=== PATIENT | female | born 1960 | race Caucasian/White ===

== ENCOUNTER → 2021-10-13 | Day surgery (SDC) | payer BC | END | disposition home or self-care (01) | LOC: JRADIR 10:50 | PROVIDERS: ATTEND Internal Medicine Infectious Disease | PROC: 02HV33Z Insertion of Infusion Device into Superior Vena Cava, Percutaneous Approach (ICD-10-PCS; principal; 2021-10-13) | PROC: B518ZZA Fluoroscopy of Superior Vena Cava, Guidance (ICD-10-PCS; 2021-10-13) | DX: N30.00 Acute cystitis without hematuria (principal) | CPT/HCPCS: 36569; 77001-TC-FY; C1751 ==

== ENCOUNTER 2021-10-21 15:14 | Inpatient (IN) | payer BC, OTHER ==
[2021-10-21 17:42] LABS: BASO % 0.8 % (0-2.0); EOS % 1.2 % (0-4.5); HEMATOCRIT 40.8 % (32.4-45.2); HEMOGLOBIN 13.5 GM/dL (10.7-15.3); LYMPH % 11.9 % (8-40); MCH 28.7 pg (25.7-33.7); MCHC 33.2 g/dl (32.0-36.0); MEAN CELL VOLUME 86.6 fl (80-96); MEAN PLT VOLUME 9.4 fl (7.5-11.1); MONO % 8.6 % (3.8-10.2); NEUT % 77.5 % (42.8-82.8); PLATELET COUNT 166 10^3/uL (134-434); RBC 4.71 M/mm3 (3.60-5.2); RDW 13.9 % (11.6-15.6); WHITE BLOOD COUNT 12.9 K/mm3 (4.0-10.0)
[2021-10-21 17:49] LABS: INR 1.01 (0.83-1.09); PROTHROMBIN TIME (PATIENT) 11.8 SEC (9.7-13.0)
[2021-10-21 17:51] LABS: ACTIVATED PTT 32.7 SECONDS (25.2-36.5)
[2021-10-21 18:07] LABS: CHLORIDE 108 mmol/L (98-107); SODIUM 138 mmol/L (136-145)
[2021-10-21 18:09] LABS: ALBUMIN 3.8 g/dl (3.4-5.0); ANION GAP 6 MMOL/L (8-16); BLOOD UREA NITROGEN 11.7 mg/dL (7-18); CALCIUM 9.4 mg/dL (8.5-10.1); CO2 24 mmol/L (21-32); GLUCOSE,RANDOM 86 mg/dL (74-106)
[2021-10-21 18:12] LABS: CREATININE 0.6 mg/dL (0.55-1.3); SGOT/AST 15 U/L (15-37); SGPT/ALT 18 U/L (13-61)
[2021-10-21 18:14] LABS: BILIRUBIN,TOTAL 0.8 mg/dL (0.2-1); TOT PROT 7.2 g/dl (6.4-8.2)
[2021-10-21 18:15] LABS: ALK PHOS 67 U/L (45-117)
[2021-10-21] MEDS ORDERED: CEFTRIAXONE 2,000 MG in DEXTROSE 5%-WATER - 50 ML IVPB ONE (19:08)
[2021-10-21] MEDS ORDERED: VANCOMYCIN 1,000 MG in DEXTROSE 5%-WATER - 250 ML IVPB ONE (19:08)
[2021-10-21] MEDS ORDERED: SODIUM CHLORIDE 0.9% 500 ML INFUS.BAG IV ONE (19:08)
[2021-10-21] MEDS ORDERED: CEFTRIAXONE 2 GM/100 ML BAG IVPB ONE (19:27)
[2021-10-21] MEDS ORDERED: VANCOMYCIN 1 GRAM (PRE-DOCKED) 1,000 MG/250 ML BAG IVPB ONE (20:41)
[2021-10-21] MEDS ORDERED: ACETAMINOPHEN 325 MG TABLET (FP) PO ONE (20:50)
[2021-10-21] MEDS ORDERED: ACETAMINOPHEN 325 MG TABLET (FP) ONE (20:50)
[2021-10-21] MEDS ORDERED: LIDOCAINE 5% TOPICAL PATCH TP ONE (20:50)
[2021-10-21] MEDS ORDERED: LIDOCAINE 5% TOPICAL PATCH ONE (20:51)
[2021-10-21] MEDS ORDERED: ERTAPENEM SODIUM 1 GM in SODIUM CHLORIDE 50 ML IVPB ONE (21:20)
[2021-10-21] MEDS ORDERED: SODIUM CHLORIDE 1,000 ML IV ONE (22:02)
[2021-10-21] MEDS ORDERED: ACETAMINOPHEN 1000 MG/100 ML VIAL IVPB ONE (22:09)
[2021-10-21] MEDS ORDERED: ERTAPENEM SODIUM 1 GM VIAL ONE (22:24)
[2021-10-21] MEDS: SODIUM CHLORIDE 1,000 ML IV SCH (23:05)
[2021-10-21] MEDS: LIDOCAINE PATCH REMOVAL MC SCH (23:05)
[2021-10-22 00:27] VITALS: BMI 29.7
[2021-10-22 00:51] LABS: LACTIC ACID 2.3 mmol/L (0.4-2.0)
[2021-10-22] MEDS ORDERED: DEXTROSE 5%-WATER - 50 ML IVPB ONE ×2 (00:53→09:26)
[2021-10-22] MEDS ORDERED: PIPERACILLIN/TAZOBACTAM 3.375 GM VIAL IVPB ONE ×2 (00:53→09:26)
[2021-10-22] MEDS: PIPERACILLIN/TAZOB 3.375 GM 3.375 GM in DEXTROSE 5%-WATER - 50 ML IVPB SCH ×2 (01:21→09:46)
[2021-10-22] MEDS ORDERED: PIPERACILLIN/TAZOB 3.375 GM 3.375 GM in DEXTROSE 5%-WATER - 50 ML IVPB SCH (02:00)
[2021-10-22] MEDS: ACETAMINOPHEN 325 MG TABLET (FP) PO PRN ×2 (05:10→11:36)
[2021-10-22] MEDS: NICOTINE 14 MG/24 HOURS TOPICAL PATCH TD SCH (09:46)
[2021-10-22] MEDS: ENOXAPARIN NA (PORCINE) 40 MG/0.4 ML DISP.SYRIN SQ SCH (09:46)
[2021-10-22] MEDS: MULTIVITAMINS (DAILY MVI) TABLET (FP) PO SCH (09:46)
[2021-10-22] MEDS ORDERED: VANCOMYCIN 1 GM in D5W (PRE-DOCKED) 1,000 MG/250 ML IVPB SCH (10:00)
[2021-10-22 10:13] LABS: BASO % 0.7 % (0-2.0); EOS % 1.3 % (0-4.5); HEMATOCRIT 37.1 % (32.4-45.2); HEMOGLOBIN 12.7 GM/dL (10.7-15.3); LYMPH % 12.4 % (8-40); MCH 29.7 pg (25.7-33.7); MCHC 34.2 g/dl (32.0-36.0); MEAN CELL VOLUME 86.8 fl (80-96); MONO % 10.1 % (3.8-10.2); NEUT % 75.5 % (42.8-82.8); PLATELET COUNT 217 10^3/uL (134-434); RBC 4.28 M/mm3 (3.60-5.2); RDW 14.2 % (11.6-15.6); WHITE BLOOD COUNT 12.8 K/mm3 (4.0-10.0)
[2021-10-22 10:17] LABS: INR 1.17 (0.83-1.09); PROTHROMBIN TIME (PATIENT) 13.1 SEC (9.7-13.0)
[2021-10-22 10:20] LABS: ACTIVATED PTT 31.1 SECONDS (25.2-36.5)
[2021-10-22 10:52] LABS: BLOOD UREA NITROGEN 8.1 mg/dL (7-18); MAGNESIUM 2.2 mg/dL (1.8-2.4)
[2021-10-22 10:55] LABS: PHOSPHOROUS 2.7 mg/dL (2.5-4.9)
[2021-10-22 10:56] LABS: CREATININE 0.7 mg/dL (0.55-1.3); TOT PROT 6.4 g/dl (6.4-8.2)
[2021-10-22] MEDS: VANCOMYCIN 1 GM in D5W (PRE-DOCKED) 1,000 MG/250 ML IVPB ONE ×2 (11:36→11:40)
[2021-10-22] MEDS ORDERED: MEROPENEM 1 GM VIAL (RESTRICTED TO ID) IVPB ONE (17:38)
[2021-10-22] MEDS ORDERED: DEXTROSE 5%-WATER 100 ML IVPB ONE (17:39)
[2021-10-22] MEDS: MEROPENEM 1 GM in DEXTROSE 5%-WATER 100 ML IVPB SCH (18:03)
[2021-10-22] MEDS: ATORVASTATIN CA 10 MG TABLET (FP) PO SCH (21:23)
[2021-10-22] MEDS: oxyCODONE HCL 5 MG TABLET PO PRN (21:23)
[2021-10-22] MEDS: LIDOCAINE PATCH REMOVAL MC SCH (21:26)
[2021-10-22] MEDS: SODIUM CHLORIDE 1,000 ML IV SCH (23:10)
[2021-10-23] MEDS ORDERED: MEROPENEM 1 GM VIAL (RESTRICTED TO ID) IVPB ONE ×3 (02:07→17:26)
[2021-10-23] MEDS ORDERED: DEXTROSE 5%-WATER 100 ML IVPB ONE ×3 (02:07→17:27)
[2021-10-23] MEDS: MEROPENEM 1 GM in DEXTROSE 5%-WATER 100 ML IVPB SCH ×3 (02:31→17:34)
[2021-10-23] MEDS: oxyCODONE HCL 5 MG TABLET PO PRN ×2 (08:10→22:48)
[2021-10-23] MEDS: ACETAMINOPHEN 325 MG TABLET (FP) PO PRN ×2 (08:11→22:47)
[2021-10-23 09:16] LABS: EPI CELLS 6 /uL (0-25.1); HYALINE CASTS 1 /uL (0-3.1); PH,URINE 5.5 (5.0-8.0); URINE APPEARANCE CLEAR; URINE BACTERIA 1 /uL (0-1359); URINE BILIRUBIN NEGATIVE (NEGATIVE); URINE COLOR YELLOW; URINE GLUCOSE (UA) NEGATIVE (NEGATIVE); URINE KETONE TRACE (NEGATIVE); URINE LEUK ESTERASE NEGATIVE (NEGATIVE); URINE NITRITE NEGATIVE (NEGATIVE); URINE PROTEIN NEGATIVE (NEGATIVE); URINE RBC 55 /uL (0-23.9); URINE UROBILINOGEN 0.2 mg/dL (0.2-1.0); URINE WBC 3 /uL (0-25.8)
[2021-10-23] MEDS: SODIUM CHLORIDE 1,000 ML IV SCH ×2 (09:28→17:34)
[2021-10-23] MEDS: ENOXAPARIN NA (PORCINE) 40 MG/0.4 ML DISP.SYRIN SQ SCH (09:29)
[2021-10-23] MEDS: MULTIVITAMINS (DAILY MVI) TABLET (FP) PO SCH (09:29)
[2021-10-23] MEDS: NICOTINE 14 MG/24 HOURS TOPICAL PATCH TD SCH (09:29)
[2021-10-23 10:27] LABS: BASO % 1.4 % (0-2.0); EOS % 1.4 % (0-4.5); HEMATOCRIT 36.7 % (32.4-45.2); HEMOGLOBIN 12.4 GM/dL (10.7-15.3); LYMPH % 15.8 % (8-40); MCH 29.5 pg (25.7-33.7); MCHC 33.9 g/dl (32.0-36.0); MEAN CELL VOLUME 86.8 fl (80-96); MEAN PLT VOLUME 8.6 fl (7.5-11.1); MONO % 11.3 % (3.8-10.2); NEUT % 70.1 % (42.8-82.8); PLATELET COUNT 217 10^3/uL (134-434); RBC 4.22 M/mm3 (3.60-5.2); RDW 13.9 % (11.6-15.6); WHITE BLOOD COUNT 11.6 K/mm3 (4.0-10.0)
[2021-10-23] MEDS ORDERED: predniSONE 10 MG TABLET (UD) PO SCH (13:30)
[2021-10-23 13:38] LABS: BLOOD UREA NITROGEN 6.7 mg/dL (7-18); CREATININE 0.7 mg/dL (0.55-1.3)
[2021-10-23] MEDS: DEXAMETHASONE SOD PHOSPHATE 4 MG/1 ML VIAL IVPB SCH (15:19)
[2021-10-23] MEDS: PANTOPRAZOLE 40 MG TABLET PO SCH (16:26)
[2021-10-23 16:27] LABS: CALCIUM 8.8 mg/dL (8.5-10.1)
[2021-10-23] MEDS ORDERED: ENOXAPARIN NA (PORCINE) 40 MG/0.4 ML DISP.SYRIN SQ SCH (22:00)
[2021-10-23] MEDS: ATORVASTATIN CA 10 MG TABLET (FP) PO SCH (22:47)
[2021-10-23] MEDS: LIDOCAINE PATCH REMOVAL MC SCH (22:49)
[2021-10-23] MEDS: ENOXAPARIN NA (PORCINE) 80 MG/0.8 ML DISP.SYRIN SQ SCH (22:50)
[2021-10-24] MEDS ORDERED: MEROPENEM 1 GM VIAL (RESTRICTED TO ID) IVPB ONE ×3 (02:18→17:57)
[2021-10-24] MEDS ORDERED: DEXTROSE 5%-WATER 100 ML IVPB ONE ×3 (02:19→17:57)
[2021-10-24] MEDS: MEROPENEM 1 GM in DEXTROSE 5%-WATER 100 ML IVPB SCH ×3 (02:24→18:04)
[2021-10-24] MEDS: SODIUM CHLORIDE 1,000 ML IV SCH ×3 (03:15→21:27)
[2021-10-24] MEDS: DEXAMETHASONE SOD PHOSPHATE 4 MG/1 ML VIAL IVPB SCH (09:35)
[2021-10-24] MEDS: ENOXAPARIN NA (PORCINE) 80 MG/0.8 ML DISP.SYRIN SQ SCH ×2 (09:36→21:28)
[2021-10-24] MEDS: MULTIVITAMINS (DAILY MVI) TABLET (FP) PO SCH (09:37)
[2021-10-24] MEDS: PANTOPRAZOLE 40 MG TABLET PO SCH (09:37)
[2021-10-24] MEDS: NICOTINE 14 MG/24 HOURS TOPICAL PATCH TD SCH (09:39)
[2021-10-24 09:56] LABS: BASO % 0.3 % (0-2.0); HEMATOCRIT 35.6 % (32.4-45.2); HEMOGLOBIN 12.1 GM/dL (10.7-15.3); LYMPH % 9.3 % (8-40); MCH 29.8 pg (25.7-33.7); MCHC 33.8 g/dl (32.0-36.0); MEAN PLT VOLUME 9.3 fl (7.5-11.1); MONO % 3.8 % (3.8-10.2); NEUT % 86.6 % (42.8-82.8); PLATELET COUNT 241 10^3/uL (134-434); RBC 4.05 M/mm3 (3.60-5.2); WHITE BLOOD COUNT 8.8 K/mm3 (4.0-10.0)
[2021-10-24 10:10] LABS: BLOOD UREA NITROGEN 7.5 mg/dL (7-18); CALCIUM 9.2 mg/dL (8.5-10.1)
[2021-10-24 10:11] LABS: MAGNESIUM 2.3 mg/dL (1.8-2.4)
[2021-10-24 10:13] LABS: CREATININE 0.7 mg/dL (0.55-1.3); PHOSPHOROUS 2.4 mg/dL (2.5-4.9)
[2021-10-24] MEDS: VANCOMYCIN 1 GRAM (PRE-DOCKED) 1,000 MG/250 ML BAG IVPB SCH (16:11)
[2021-10-24] MEDS: ACETAMINOPHEN 325 MG TABLET (FP) PO PRN (18:05)
[2021-10-24] MEDS ORDERED: NAPH,MB-DB/K PH,MBDB POWDER PACKET PO ONE (19:26)
[2021-10-24] MEDS: ATORVASTATIN CA 10 MG TABLET (FP) PO SCH (21:28)
[2021-10-24] MEDS: LIDOCAINE PATCH REMOVAL MC SCH (21:46)
[2021-10-25] MEDS ORDERED: MEROPENEM 1 GM VIAL (RESTRICTED TO ID) IVPB ONE ×3 (01:02→18:12)
[2021-10-25] MEDS ORDERED: DEXTROSE 5%-WATER 100 ML IVPB ONE ×3 (01:03→18:12)
[2021-10-25] MEDS: MEROPENEM 1 GM in DEXTROSE 5%-WATER 100 ML IVPB SCH ×3 (01:07→18:16)
[2021-10-25] MEDS: SODIUM CHLORIDE 1,000 ML IV SCH ×2 (01:07→03:46)
[2021-10-25] MEDS: VANCOMYCIN 1 GRAM (PRE-DOCKED) 1,000 MG/250 ML BAG IVPB SCH ×2 (02:50→16:20)
[2021-10-25] MEDS: ENOXAPARIN NA (PORCINE) 80 MG/0.8 ML DISP.SYRIN SQ SCH ×2 (10:11→22:27)
[2021-10-25] MEDS: NICOTINE 14 MG/24 HOURS TOPICAL PATCH TD SCH (10:11)
[2021-10-25] MEDS: MULTIVITAMINS (DAILY MVI) TABLET (FP) PO SCH (10:11)
[2021-10-25] MEDS: PANTOPRAZOLE 40 MG TABLET PO SCH (10:11)
[2021-10-25 10:19] LABS: BASO % 0.8 % (0-2.0); HEMATOCRIT 33.9 % (32.4-45.2); HEMOGLOBIN 11.4 GM/dL (10.7-15.3); LYMPH % 17.8 % (8-40); MCH 29.1 pg (25.7-33.7); MCHC 33.6 g/dl (32.0-36.0); MEAN CELL VOLUME 86.5 fl (80-96); MEAN PLT VOLUME 9.4 fl (7.5-11.1); MONO % 4.7 % (3.8-10.2); NEUT % 76.7 % (42.8-82.8); PLATELET COUNT 297 10^3/uL (134-434); RBC 3.92 M/mm3 (3.60-5.2); RDW 13.7 % (11.6-15.6); WHITE BLOOD COUNT 11.8 K/mm3 (4.0-10.0)
[2021-10-25 10:51] LABS: BLOOD UREA NITROGEN 11.1 mg/dL (7-18); CALCIUM 9.4 mg/dL (8.5-10.1)
[2021-10-25 10:55] LABS: CREATININE 0.7 mg/dL (0.55-1.3)
[2021-10-25] MEDS: DEXAMETHASONE SOD PHOSPHATE 4 MG/1 ML VIAL IVPB SCH (12:00)
[2021-10-25] MEDS: ACETAMINOPHEN 325 MG TABLET (FP) PO PRN (19:59)
[2021-10-25] MEDS: ATORVASTATIN CA 10 MG TABLET (FP) PO SCH (22:27)
[2021-10-25] MEDS: LIDOCAINE PATCH REMOVAL MC SCH (22:29)
[2021-10-26] MEDS ORDERED: DEXTROSE 5%-WATER 100 ML IVPB ONE ×3 (01:30→18:39)
[2021-10-26] MEDS ORDERED: MEROPENEM 1 GM VIAL (RESTRICTED TO ID) IVPB ONE ×3 (01:30→18:39)
[2021-10-26] MEDS: MEROPENEM 1 GM in DEXTROSE 5%-WATER 100 ML IVPB SCH ×3 (01:31→18:41)
[2021-10-26] MEDS: VANCOMYCIN 1 GRAM (PRE-DOCKED) 1,000 MG/250 ML BAG IVPB SCH (03:31)
[2021-10-26] MEDS: ENOXAPARIN NA (PORCINE) 80 MG/0.8 ML DISP.SYRIN SQ SCH ×2 (10:30→21:40)
[2021-10-26] MEDS: NICOTINE 14 MG/24 HOURS TOPICAL PATCH TD SCH (10:30)
[2021-10-26] MEDS: MULTIVITAMINS (DAILY MVI) TABLET (FP) PO SCH (10:30)
[2021-10-26] MEDS: PANTOPRAZOLE 40 MG TABLET PO SCH (10:30)
[2021-10-26 11:03] LABS: BASO % 0.8 % (0-2.0); EOS % 1.7 % (0-4.5); HEMATOCRIT 33.5 % (32.4-45.2); HEMOGLOBIN 11.6 GM/dL (10.7-15.3); LYMPH % 32.2 % (8-40); MCH 29.9 pg (25.7-33.7); MCHC 34.7 g/dl (32.0-36.0); MEAN CELL VOLUME 86.2 fl (80-96); MEAN PLT VOLUME 8.6 fl (7.5-11.1); MONO % 10.4 % (3.8-10.2); NEUT % 54.9 % (42.8-82.8); PLATELET COUNT 274 10^3/uL (134-434); RBC 3.88 M/mm3 (3.60-5.2); RDW 13.6 % (11.6-15.6); WHITE BLOOD COUNT 9.2 K/mm3 (4.0-10.0)
[2021-10-26 11:36] LABS: CALCIUM 9.2 mg/dL (8.5-10.1)
[2021-10-26 11:37] LABS: MAGNESIUM 2.4 mg/dL (1.8-2.4)
[2021-10-26 11:40] LABS: CREATININE 0.7 mg/dL (0.55-1.3); PHOSPHOROUS 3.5 mg/dL (2.5-4.9)
[2021-10-26] MEDS: SODIUM CHLORIDE 1,000 ML IV SCH (19:55)
[2021-10-26] MEDS ORDERED: oxyCODONE HCL 5 MG TABLET PO ONE (20:57)
[2021-10-26] MEDS: LIDOCAINE PATCH REMOVAL MC SCH (21:39)
[2021-10-26] MEDS: ATORVASTATIN CA 10 MG TABLET (FP) PO SCH (21:40)
[2021-10-27] MEDS ORDERED: MEROPENEM 1 GM VIAL (RESTRICTED TO ID) IVPB ONE ×3 (01:42→16:59)
[2021-10-27] MEDS ORDERED: DEXTROSE 5%-WATER 100 ML IVPB ONE ×3 (01:42→17:00)
[2021-10-27] MEDS: MEROPENEM 1 GM in DEXTROSE 5%-WATER 100 ML IVPB SCH ×3 (01:50→17:02)
[2021-10-27] MEDS: SODIUM CHLORIDE 1,000 ML IV SCH (01:50)
[2021-10-27] MEDS: ACETAMINOPHEN 325 MG TABLET (FP) PO PRN (08:32)
[2021-10-27 09:10] LABS: BASO % 0.6 % (0-2.0); EOS % 2.7 % (0-4.5); HEMATOCRIT 38.2 % (32.4-45.2); LYMPH % 24.5 % (8-40); MCH 29.7 pg (25.7-33.7); MEAN CELL VOLUME 87.2 fl (80-96); MEAN PLT VOLUME 8.6 fl (7.5-11.1); MONO % 8.2 % (3.8-10.2); PLATELET COUNT 334 10^3/uL (134-434); RBC 4.39 M/mm3 (3.60-5.2); RDW 13.9 % (11.6-15.6); WHITE BLOOD COUNT 8.7 K/mm3 (4.0-10.0)
[2021-10-27 10:04] LABS: CALCIUM 9.6 mg/dL (8.5-10.1)
[2021-10-27 10:05] LABS: MAGNESIUM 2.5 mg/dL (1.8-2.4); PHOSPHOROUS 3.7 mg/dL (2.5-4.9)
[2021-10-27 10:06] LABS: CREATININE 0.8 mg/dL (0.55-1.3)
[2021-10-27 10:21] LABS: BLOOD UREA NITROGEN 10.3 mg/dL (7-18)
[2021-10-27] MEDS: MULTIVITAMINS (DAILY MVI) TABLET (FP) PO SCH (11:02)
[2021-10-27] MEDS: PANTOPRAZOLE 40 MG TABLET PO SCH (11:02)
[2021-10-27] MEDS: NICOTINE 14 MG/24 HOURS TOPICAL PATCH TD SCH (11:02)
[2021-10-27] MEDS: ENOXAPARIN NA (PORCINE) 80 MG/0.8 ML DISP.SYRIN SQ SCH (11:02)
[2021-10-27 14:15] VITALS: BP 114/65; PULSE 103; TEMP 98
== END 2021-10-27 18:30 | disposition home or self-care (01) | DRG 314 ==
LOC: JER 15:14 → JERBED 21:16 → OBSVTOIN 22:05 → J6S 22:52
PROVIDERS: ADMIT Internal Medicine; ATTEND Internal Medicine
DX: T80.218A Other infection due to central venous catheter, initial encounter (principal); A41.9 Sepsis, unspecified organism; N39.0 Urinary tract infection, site not specified; Z16.12 Extended spectrum beta lactamase (ESBL) resistance; E78.5 Hyperlipidemia, unspecified; M54.2 Cervicalgia; D72.829 Elevated white blood cell count, unspecified; F41.9 Anxiety disorder, unspecified; F17.210 Nicotine dependence, cigarettes, uncomplicated; A49.9 Bacterial infection, unspecified; K21.9 Gastro-esophageal reflux disease without esophagitis; Y83.9 Surgical procedure, unspecified as the cause of abnormal reaction of the patient, or of later complication, without mention of misadventure at the time of the procedure
CPT/HCPCS: 36415; 71046-TC-FY; 71275-TC; 71552-TC; 80048; 80053; 81003; 83605; 83735; 84100; 84484; 85025; 85379; 85610; 85730; 87040; 87086; 93005; 93010; 93306-TC; 93971; 99285-25; C9803; G0378; Q9967; U0003; U0005

== ENCOUNTER 2022-05-13 11:10 | Emergency (ER) | payer BC ==
[2022-05-13 11:26] VITALS: TEMP 98; BMI 29.7
[2022-05-13] MEDS ORDERED: BEBTELOVIMAB (EUA) 175 MG/2 ML VIAL IVPUSH ONE (12:58)
[2022-05-13 17:29] VITALS: BP 123/68; PULSE 86
== END 2022-05-13 16:00 | disposition home or self-care (01) ==
LOC: JCOVINFU 11:10
PROC: 3E033GC Introduction of Other Therapeutic Substance into Peripheral Vein, Percutaneous Approach (ICD-10-PCS; principal; 2022-05-13)
DX: U07.1 COVID-19 (principal)
CPT/HCPCS: 99284-25; M0222; Q0222